=== PATIENT | male | born 1970 | race Two or more races ===

== ENCOUNTER → 2018-11-21 | Day surgery (SDC) | payer OTHER ==
[~2018-11-21] VITALS: Ht 170.2 cm; Wt 82.6 kg
[2018-11-21] VITALS (11 sets, daily range): BP systolic 97–118; BP diastolic 53–76
[~2018-11-21] MED LIST: CYCLOBENZAPRIN7.5 MG ORAL; IBUPROFEN600 MG ORAL; LANSOPRAZOLE15 MG ORAL; LEXAPRO10 MG ORAL; LR 1000ml 1,000 ML IVLG SCH; LR 1000ml ONE; NKM; Propofol 200mg/20ml IV ONE
--- NOTE | 2018-11-21 08:48 | Anethesia Preoperative Eval ---
Anesthesia Pre-op PMH/ROS General Date of Evaluation: November 21, 2018 Time of Evaluation: 08:00 ASA Score: ASA 2 Mallampati Score Class I : Soft palate, uvula, fauces, pillars visible Class II: Soft palate, uvula, fauces visible Class III: Soft palate, base of uvula visible Class IV: Only hard plate visible Mallampati Classification: Class II Allergies: Coded Allergies: No Known Allergies (Unverified , 11/21/18) Patient NPO?: Yes Anesthesia Pre-op Phys. Exam Physician Exam Last Vital Signs Date Time Temp Pulse Resp B/P (MAP) Pulse Ox O2 Delivery O2 Flow Rate FiO2 11/21/18 08:28 Room Air 11/21/18 08:21 98.2 58 18 104/68 97 Airway Exam Mallampati Score: Class II Micaela Armijo MD November 21, 2018 08:48
--- NOTE | 2018-11-21 08:49 | Immediate Post-Op Evaluation ---
Immediate Post-Op Evalulation Immediate Post-Op Evalulation Procedure: egd Date of Evaluation: November 21, 2018 Time of Evaluation: 09:00 Nausea: No Vomiting: No Micaela Armijo MD November 21, 2018 08:49
--- NOTE | 2018-11-21 08:52 | Pre-Procedure Note/Attestation ---
Pre-Procedure Note/Attestation Complete Prior to Procedure Planned Procedure: left Procedure Narrative: Examination of the upper GI tract via endoscopy Indications for Procedure Pre-Operative Diagnosis: R/O Peptic Ulcer/Gastritis Attestation I attest that I discussed the nature of the procedure; its benefits; risks and complications; and alternatives (and the risks and benefits of such alternatives ), prior to the procedure, with the patient (or the patient's legal technical support representative). I attest that, if there was a reasonable possibility of needing a blood transfusion, the patient (or the patient's legal technical support representative) was given the [facility] standardized written summary, pursuant to the [place] Blood Safety Act ([place] Health and Safety Code # 1645, as amended). I attest that I re-evaluated the patient just prior to the surgery and that there has been no change in the patient's H&P, except as documented below: Katya Faust MD November 21, 2018 08:52
--- NOTE | 2018-11-21 08:52 | Short Stay Surgery H&P ---
History of Present Illness History of Present Illness Chief Complaint Abdominal apins/GERDs HPI Yash Giraldo is a 48 year old male who was admitted on for GERD/abdominal pains Patient History Allergies: Coded Allergies: No Known Allergies (Unverified , 11/21/18) Past Surgeries: (1) Hx of appendectomy (2) S/P cholecystectomy (3) H/O elbow surgery Medication History Scheduled Cyclobenzaprine Hcl (Cyclobenzaprine Hcl), 7.5 MG ORAL DAILY, (Reported) Escitalopram Oxalate* (Lexapro*), 10 MG ORAL DAILY, (Reported) Lansoprazole* (Lansoprazole*), 15 MG ORAL DAILY, (Reported) Scheduled PRN Ibuprofen* (Motrin*), 800 MG ORAL Q8H PRN for For Pain, (Reported) Review of Systems Cardiovascular: Reports: no symptoms Respiratory: Reports: no symptoms Skeletal: Reports: trauma Gastrointestinal: Reports: gastro esophageal reflux disease Genitourinary: Reports: no symptoms Neurologic: Reports: no symptoms Endocrine: Reports: no symptoms Hematologic: Reports: no symptoms Physical Exam Vital Signs Last Vital Signs Date Time Temp Pulse Resp B/P (MAP) Pulse Ox O2 Delivery O2 Flow Rate FiO2 11/21/18 08:28 Room Air 11/21/18 08:21 98.2 58 18 104/68 97 Skin: normal HENT: normal Heart: normal Lungs: normal Abdomen: abnormal Extremities: normal Genitourinary: normal Plan Plan of Care Upper GI endoscopy and biopsy Preop Interventions None. Summary of Findings See the reports Attestation Are the patient's medical conditions optimized for surgery? Attestation Response: yes Katya Faust MD November 21, 2018 08:51
--- NOTE | 2018-11-21 08:54 | Endoscopy Procedure Note ---
Endoscopy Procedure Note General Indication for Procedure: Abdominal pains/GERDs Procedures Performed: EGD - Mild gastritis, biopsy taken from gastric body. Specimen: yes Pt Tolerated Procedure Well: Yes Estimated Blood Loss: none Anesthesia Anesthesiologist: Dr. Armijo Anesthesia: moderate sedation Medications Medication Given: see anesthesia record Inserted Devices Implant(s) used?: No Quality Quality of Bowel Preparation: Excellent Was there any complications?: No GI Core Measures 50 yrs or older w/o bx or poly: Not Applicable 10yrs. F/U not recommended: Not Applicable If not recommended, why?: Med reason:<3 yrs.: System Reason:<3 yrs.: Katya Faust MD November 21, 2018 08:54
--- NOTE | 2018-11-21 08:55 | Discharge Instructions ---
Discharge Instructions Discharge Instructions Follow up with: Visit the doctor after 2 weeks in the office For Congestive Heart Failure Reminder Report to your physician any weight gain of 5 pounds or more in one week. Katya Faust MD November 21, 2018 08:55
--- NOTE | 2018-11-21 09:52 | 48 Hour Post Anesthesia Eval ---
Post Anesthesia Evaluation Procedure: egd Date of Evaluation: November 21, 2018 Time of Evaluation: 09:51 Nausea: No Vomiting: No Micaela Armijo MD November 21, 2018 09:52
--- NOTE | 2018-11-21 16:15 | Operative Note - Dictated ---
DATE OF OPERATION: 11/21/2018 SURGEON: Katya Faust M.D. PROCEDURE: Esophagogastroduodenoscopy with biopsy. PREOPERATIVE DIAGNOSES: Abdominal pain, epigastric pain, severe heartburn, rule out peptic ulcer disease. POSTOPERATIVE DIAGNOSIS: Evidence of mild generalized gastritis, otherwise normal upper GI endoscopy. Biopsy was taken per random from gastric body. MEDICATION USED: Per Dr. Armijo, anesthesiologist. INSTRUMENT: GIF Olympus upper GI video endoscope. DESCRIPTION OF PROCEDURE: The patient after arriving in the endoscopy unit, was told about risks and benefits of the procedure, which he accepted and signed informed consent. He was then put on the left lateral decubitus position. After adequate IV sedation, the scope was gently passed through the cricopharyngeal area, was lodged into the upper esophagus gradually advanced towards gastroesophageal junction. The entire length of the esophagus looked normal. No evidence of inflammatory process, ulceration, stricture, exudative process, etc. was found. GE junction also looked normal without any evidence of Millan's or hiatal hernia. At this time, the scope was advanced into the stomach. Gastric cavity was distended with insufflation of air and gradually the areas of the fundus and the body and the antrum were examined, which revealed evidence of minimal inflammatory process consistent with mild generalized gastritis. However, there was no ulcers, tumors, polyps etc. No bleeding sites. At this point, one random biopsy from gastric body obtained and subsequently the scope was passed through the pylorus. First and second portion of duodenum were found to be also completely normal. The scope was pulled back into the stomach. A retroflexion maneuver was applied and the area of the gastroesophageal junction was examined in a retrograde fashion, which revealed no other pathologies. Finally, the scope was pulled out and the procedure was terminated. The patient tolerated the procedure well, left the endoscopy room in good condition. Katya Faust M.D. DR: KAMINI JOB#: [id number] CC:
== END | disposition home or self-care (01) ==
LOC: GAS 07:50
DX: R10.13 Epigastric pain (principal); K29.50 Unspecified chronic gastritis without bleeding; R12 Heartburn; Z90.89 Acquired absence of other organs; Z90.49 Acquired absence of other specified parts of digestive tract; K21.9 Gastro-esophageal reflux disease without esophagitis; Z79.899 Other long term (current) drug therapy
CPT/HCPCS: 43239; J2704; 94003; 94150